=== PATIENT | male | born 1950 | race Caucasian/White ===

== ENCOUNTER 2017-01-22 08:39 | Inpatient (IN) | payer MEDICARE, MEDICAID ==
[2017-01-22] MEDS ORDERED: Albuterol/Ipratropium 3.0-0.5 MG/3 ML Neb Soln NEB ONE (09:22)
--- NOTE | 2017-01-22 10:09 | CR ---
Elevated diaphragms with low lung volumes. Heart size is likely stable. Pulmonary vasculature mildly accentuated due to low lung volumes. No appreciable focal consolidation. Nodular density likely the below the left hemidiaphragm laterally consider a lateral chest x-ray follow-up to exclude a pulmon stephanie nodule.
--- NOTE | 2017-01-22 10:18 | EDM.PDOC ---
[id number]: BREATHING ISSUES Time Seen by Provider: 01/22/17 09:00 Source of Information: Reports: Provider, Other (LANGUAGE TUTOR) - History of Present Illness INITIAL COMMENTS - FREE TEXT/NARRATIVE: 66-year-old male, severely disabled and noncommunicative presented to the clinic for shortness of breath and cough, there was a concern for aspiration. O2 saturations were checked and they were only 86-89% so he was sent over the emergency room. He has mild increased respiratory effort. Intermittent low- grade fevers for the last couple days. His care center manager has noticed him "mouth breathing" which he does not do typically. He also seems anxious. He is unable to communicate and it is unknown if he has pain. He takes feedings by G-tube but also soft foods. He does have a history of aspiration pneumonia. Onset: Unknown/Unsure (Over the past several days) Severity: Moderate Improves with: Reports: Other (There was slight improvement after a duo neb provided in the emergency room) Associated Symptoms: Reports: Fever/Chills, Other (Anxious). Denies: Nausea/ Vomiting - Related Data Allergies Allergy/AdvReac Type Severity Reaction Status Date / Time adhesive tape Allergy Rash Verified 01/22/17 08:56 ampicillin Allergy Cannot Verified 01/22/17 08:56 Remember ketoconazole [From Nizoral] Allergy Cannot Verified 01/22/17 08:56 Remember Home Meds: Home Meds Bisacodyl 10 mg RC Q72H 02/20/14 [History] Diazepam 2 mg PO WITHLUNCH 02/20/14 [History] Diazepam 5 mg PO BID 02/20/14 [History] Magnesium Hydroxide [Milk of Magnesia] 30 ml PO Q72H 02/20/14 [History] Multivitamin [Multi-Vitamin Daily] 1 each PO DAILY 02/20/14 [History] Sorbitol Solution [Sorbitol] 30 ml PO DAILY 02/20/14 [History] Past Medical History - Past Health History Medical/Surgical History: Denies Medical/Surgical History HEENT History: Reports: Cataract Musculoskeletal History: Reports: Other (See Below) Other Musculoskeletal History: kyphosis. 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 non verbal Psychiatric History: Reports: Developmental Delay - Past Surgical History HEENT Surgical History: Reports: Cataract Surgery Other GI Surgeries/Procedures: G-Tube Social & Family History - Tobacco Use Smoking Status *Q: Never Smoker Second Hand Smoke Exposure: No - Caffeine Use Caffeine Use: Reports: None - Alcohol Use Days Per Week of Alcohol Use: 0 - Recreational Drug Use Recreational Drug Use: No ED ROS GENERAL - Review of Systems Review Of Systems: See Below (Very limited review of systems is obtained from his hair spinner) Constitutional: Reports: Fever Respiratory: Reports: Shortness of Breath GI/Abdominal: Denies: Vomiting Psychiatric: Reports: Anxiety (Seems anxious) ED EXAM, GENERAL - Physical Exam Exam: See Below Exam Limited By: Physical Impairment General Appearance: Alert, No Apparent Distress Respiratory/Chest: No Respiratory Distress (He has mild increased respiratory effort but no distress), Decreased Breath Sounds (Right base), Rales (Bibasilar rales are heard), Wheezing (Has a few expiratory wheezes heard after a DuoNeb) Cardiovascular: Regular Rate, Rhythm, Tachycardia GI/Abdominal: Soft Extremities: No: Pedal Edema Neurological: Alert Psychiatric: Anxious Skin Exam: Warm, Dry Course - Vital Signs Last Recorded V/S: Last Vital Signs Temp 98.6 F 01/22/17 13:32 Pulse 105 H 01/22/17 13:32 Resp 20 01/22/17 13:32 BP 147/51 H 01/22/17 13:32 Pulse Ox 94 L 01/22/17 13:32 - Orders/Labs/Meds Orders: Medication Orders Acetaminophen (Tylenol) 650 mg PO Q4H PRN PRN Reason: Pain (Mild 1-3)/fever Albuterol (Proventil Neb Soln) 2.5 mg NEB Q4H PRN PRN Reason: Shortness Of Breath/wheezing Albuterol/Ipratropium (Duoneb 3.0-0.5 Mg/3 Ml) 3 ml NEB QIDRT [facility] Diazepam (Valium) 2 mg PO WITHLUNCH [facility] Last Admin: 01/22/17 13:54 Dose: 2 mg Diazepam (Valium.) 5 mg PO BID [facility] Enoxaparin Sodium (Lovenox) 30 mg SUBCUT DAILY [facility] Ceftriaxone Sodium 1 gm/ (Sodium Chloride) 50 mls @ 100 mls/hr IV Q24H [facility] Last Admin: 01/22/17 11:44 Dose: 100 mls/hr Sodium Chloride (Normal Saline) 1,000 mls @ 75 mls/hr IV ASDIRECTED [facility] Last Admin: 01/22/17 13:54 Dose: 75 mls/hr Methylprednisolone Sodium Succinate (Solu-Medrol) 62.5 mg IVPUSH Q8H [facility] Last Admin: 01/22/17 11:41 Dose: 62.5 mg Multivitamins/Minerals (Thera M Plus) 1 tab PO DAILY [facility] Ondansetron HCl (Zofran Odt) 4 mg PO Q6H PRN PRN Reason: Nausea able to take PO Ondansetron HCl (Zofran) 4 mg IV Q6H PRN PRN Reason: Nausea/Vomiting Sorbitol (Sorbitol 70%) 30 ml PO DAILY [facility] Labs: Laboratory Tests 01/22/17 01/22/17 Range/Units 10:11 10:11 WBC 10.5 (4.5-11.0) K/uL RBC 5.05 (4.30-5.90) M/uL Hgb 15.9 H (12.0-15.0) g/dL Hct 48.2 (40.0-54.0) % MCV 95 (80-98) fL MCH 32 H (27-31) pg MCHC 33 (32-36) % Plt Count 428 H (150-400) K/uL Neut % (Auto) 70 H (36-66) % Lymph % (Auto) 20 L (24-44) % [place] % (Auto) 9 H (2-6) % Eos % (Auto) 1 L (2-4) % Baso % (Auto) 1 (0-1) % Sodium 138 L (140-148) mmol/L Potassium 4.4 (3.6-5.2) mmol/L Chloride 101 (100-108) mmol/L Carbon Dioxide 27 (21-32) mmol/L Anion Gap 14.4 H (5.0-14.0) mmol/L BUN 19 H (7-18) mg/dL Creatinine 0.6 L (0.8-1.3) mg/dL Est Cr Clr Drug Dosing 91.77 mL/min Estimated GFR (MDRD) > 60 (>60) Glucose 137 H (74-106) mg/dL Calcium 9.1 (8.5-10.1) mg/dL Meds: Medications Generic Name Dose Route Start Last Admin Trade Name Neftali PRN Reason Stop Dose Admin Acetaminophen 650 mg 01/22/17 13:32 Tylenol PO Q4H PRN Pain (Mild 1-3)/fever Albuterol 2.5 mg 01/22/17 13:32 Proventil Neb Soln NEB Q4H PRN Shortness Of Breath/wheezing Albuterol/Ipratropium 3 ml 01/22/17 15:00 Duoneb 3.0-0.5 Mg/3 Ml NEB QIDRT [facility] Diazepam 2 mg 01/22/17 13:32 01/22/17 13:54 Valium PO 2 mg WITHLUNCH [facility] Administration Diazepam 5 mg 01/22/17 21:00 Valium. PO BID [facility] Enoxaparin Sodium 30 mg 01/23/17 09:00 Lovenox SUBCUT DAILY [facility] Ceftriaxone Sodium 1 gm/ 50 mls @ 100 mls/hr 01/22/17 12:00 01/22/17 11:44 Sodium Chloride IV 100 mls/hr Q24H [facility] Administration Sodium Chloride 1,000 mls @ 75 mls/hr 01/22/17 13:32 01/22/17 13:54 Normal Saline IV 75 mls/hr ASDIRECTED [facility] Administration Methylprednisolone Sodium Succinate 62.5 mg 01/22/17 12:00 01/22/17 11:41 Solu-Medrol IVPUSH 62.5 mg Q8H [facility] Administration Multivitamins/Minerals 1 tab 01/23/17 09:00 Thera M Plus PO DAILY [facility] Ondansetron HCl 4 mg 01/22/17 13:32 Zofran Odt PO Q6H PRN Nausea able to take PO Ondansetron HCl 4 mg 01/22/17 13:32 Zofran IV Q6H PRN Nausea/Vomiting Sorbitol 30 ml 01/23/17 09:00 Sorbitol 70% PO DAILY [facility] Discontinued Medications Generic Name Dose Route Start Last Admin Trade Name Neftali PRN Reason Stop Dose Admin Albuterol/Ipratropium 3 ml 01/22/17 09:22 01/22/17 09:33 Duoneb 3.0-0.5 Mg/3 Ml NEB 01/22/17 09:23 3 ml ONETIME ONE Administration - Re-Assessments/Exams Free Text/Narrative Re-Assessment/Exam: 01/22/17 10:17 Initially a DuoNeb was given which did expose a few scattered expiratory wheezes and he seemed to be subjectively improved. However O2 saturations did not improve and remained in the high 80s and occasionally 91%. A chest x-ray shows no definite infiltrate but he has a very high bilateral diaphragms which could easily hide posterior infiltrates. A CBC and BMP were then obtained. The hair spinner was very concerned [facility] as [facility] is no [facility] available and she is concerned about him worsening. 01/22/17 10:56 CBC and BMP were reassuring. He continued to remain relatively hypoxic however so O2 was placed at [address] Andrade, of the hospitalist service was consulted to evaluate the patient for possible admission Departure - Departure Time of Disposition: 12:13 Disposition: Admitted As Inpatient 68 Condition: fair Clinical Impression: Bronchitis, Hypoxia Reactive airway disease Qualifiers: Asthma severity: mild intermittent Asthma complication type: with acute exacerbation Qualified Code(s): J45.21 - Mild intermittent asthma with (acute) exacerbation - Discharge Information
--- NOTE | 2017-01-22 11:30 | PCM.HP ---
H&P History of Present Illness - General Date of Service: 01/22/17 Admit Problem/Dx: Admission Diagnosis/Problem Admission Diagnosis/Problem Aspiration pneumonia Source of Information: Other (senior care care provider). No: Patient History Limitations: Reports: Other (pt is non verbal ) - History of Present Illness Initial Comments - Free Text/Narative: Aashish presents to the emergency room today from his [facility] with low oxygen saturations. Aashish is unable to provide any history at this time and history is gathered from his healthcare specialist at the [facility]. She reports that his oxygen saturations have been below 90% for much of the morning. She thinks that he is a little more agitated and restless than normal today. She's not aware of any obvious aspiration events or significant coughing. She hasn't noticed any fevers. He has not shown any activity or concerns her for increased pain or discomfort. His bowels have been moving on their normal schedule. He receives his pills with applesauce or pudding but has not had noticeable choking episodes. He receives most of his nutrition through the feeding tube. Workup in the emergency room remarkable mostly for mild hypoxia with oxygen saturations in the upper 80s. Chest x-ray is difficult to interpret but appears similar to previous with no obvious pneumonia. He will be admitted with concern for aspiration pneumonia. - Related Data Allergies/Adverse Reactions: Allergies Allergy/AdvReac Type Severity Reaction Status Date / Time adhesive tape Allergy Rash Verified 01/22/17 08:56 ampicillin Allergy Cannot Verified 01/22/17 08:56 Remember ketoconazole [From Nizoral] Allergy Cannot Verified 01/22/17 08:56 Remember Home Medications: Home Meds Bisacodyl 10 mg RC Q72H 02/20/14 [History] Diazepam 2 mg PO WITHLUNCH 02/20/14 [History] Diazepam 5 mg PO BID 02/20/14 [History] Magnesium Hydroxide [Milk of Magnesia] 30 ml PO Q72H 02/20/14 [History] Multivitamin [Multi-Vitamin Daily] 1 each PO DAILY 02/20/14 [History] Sorbitol Solution [Sorbitol] 30 ml PO DAILY 02/20/14 [History] Past Medical History - Past Health History Medical/Surgical History: Denies Medical/Surgical History HEENT History: Reports: Cataract Musculoskeletal History: Reports: Other (See Below) Other Musculoskeletal History: kyphosis. 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 non verbal Psychiatric History: Reports: Developmental Delay - Past Surgical History HEENT Surgical History: Reports: Cataract Surgery Other GI Surgeries/Procedures: G-Tube Social & Family History - Family History Family Medical History: Unobtainable (pt is non-verbal) - Tobacco Use Smoking Status *Q: Never Smoker Second Hand Smoke Exposure: No - Caffeine Use Caffeine Use: Reports: None - Alcohol Use Days Per Week of Alcohol Use: 0 - Recreational Drug Use Recreational Drug Use: No H&P Review of Systems - Review of Systems: Review Of Systems: Unable To Obtain Free Text/Narrative: pt is non-verbal Exam - Exam Exam: See Below - Vital Signs Vital Signs: Last Vital Signs Temp 37.3 C 01/22/17 09:35 Pulse 120 H 01/22/17 10:24 Resp 22 H 01/22/17 09:35 BP 157/97 H 01/22/17 10:24 Pulse Ox 87 L 01/22/17 10:50 Weight: 52.163 kg - Exam Quality Assessment: Supplemental Oxygen. No: Urinary Catheter General: Alert, Mild Distress. No: Oriented HEENT: Conjunctiva Clear. No: Mucosa Moist & [place] (dry), Scleral Icterus Neck: Supple, Trachea Midline. No: Lymphadenopathy Lungs: Rales (few at both bases), Wheezing (rare and mild exp left lung base) Cardiovascular: Regular Rate, Regular Rhythm. No: Systolic Murmur Abdomen: Normal Bowel Sounds, Soft. No: Distention, Tenderness Back Exam: Decreased Range of Motion. No: Paraspinal Tenderness Extremities: Edema (mild right ankle edema ), Other (contractures of all joints) . No: Normal Inspection Skin: Warm, Dry Neuro Extensive - Mental Status: Alert. No: Oriented x3, Normal Cognition Neuro Extensive - Motor, Sensory, Reflexes: Abnormal Motor, Other (spastic paraparesis). No: Tremor Psychiatric: Alert, Anxious - Patient Data Lab Results last 24 hrs: Laboratory Results - last 24 hr 01/22/17 01/22/17 Range/Units 10:11 10:11 WBC 10.5 (4.5-11.0) K/uL RBC 5.05 (4.30-5.90) M/uL Hgb 15.9 H (12.0-15.0) g/dL Hct 48.2 (40.0-54.0) % MCV 95 (80-98) fL MCH 32 H (27-31) pg MCHC 33 (32-36) % Plt Count 428 H (150-400) K/uL Neut % (Auto) 70 H (36-66) % Lymph % (Auto) 20 L (24-44) % [place] % (Auto) 9 H (2-6) % Eos % (Auto) 1 L (2-4) % Baso % (Auto) 1 (0-1) % Sodium 138 L (140-148) mmol/L Potassium 4.4 (3.6-5.2) mmol/L Chloride 101 (100-108) mmol/L Carbon Dioxide 27 (21-32) mmol/L Anion Gap 14.4 H (5.0-14.0) mmol/L BUN 19 H (7-18) mg/dL Creatinine 0.6 L (0.8-1.3) mg/dL Est Cr Clr Drug Dosing 91.77 mL/min Estimated GFR (MDRD) > 60 (>60) Glucose 137 H (74-106) mg/dL Calcium 9.1 (8.5-10.1) mg/dL Result Diagrams: 01/22/17 10:11 01/22/17 10:11 Imaging Impressions last 24 hrs: CXR - images personally reviewed - shallow inspiration, elevated diaphragms. no obvious infiltrate. colon gas visible. no obvious mass *Q Meaningful Use (ADM) - VTE *Q VTE Criteria *Q: - VTE Risk Assess *Q Each Risk Factor Represents 1 Point: Swollen Legs, Current, Serious Lung Disease Including Pneumonia, Less than 1 Month Total Score 1 Point Risk Factors: 2 Each Risk Factor Represents 2 Points: Age 60 - 74 Years Total Score 2 Point Risk Factors: 2 - Stroke *Q Stroke Criteria *Q: - AMI *Q AMI Criteria *Q: - Problem List (1) Aspiration pneumonia SNOMED Code(s): 528436962 ICD Code: J69.0 - PNEUMONITIS DUE TO INHALATION OF FOOD AND VOMIT Status: Acute Current Visit: Yes Qualifiers: Aspiration pneumonia type: unspecified Laterality: unspecified laterality Lung location: unspecified part of lung Qualified Code(s): J69.0 - Pneumonitis due to inhalation of food and vomit (2) Spastic paraparesis SNOMED Code(s): 394349818 ICD Code: [id number] - Status: Acute Current Visit: Yes Problem List Initiated/Reviewed/Updated: Yes Orders Last 24hrs: Active Orders 24 hr Category Date Time Status RT Aerosol Therapy [RC] ASDIRECTED Care 01/22/17 09:22 Active cefTRIAXone [Rocephin] 1 gm Med 01/22/17 12:00 Active Sodium Chloride 0.9% [Normal Saline] 50 ml IV Q24H methylPREDNISolone Sod Succ [Solu-MEDROL] Med 01/22/17 12:00 Active 62.5 mg IVPUSH Q8H Resuscitation Status Routine Resus Stat 01/22/17 11:09 Ordered Medication Orders Ceftriaxone Sodium 1 gm/ (Sodium Chloride) 50 mls @ 100 mls/hr IV Q24H [facility] Methylprednisolone Sodium Succinate (Solu-Medrol) 62.5 mg IVPUSH Q8H [facility] Assessment/Plan Comment:: Assessment and plan - Probable aspiration pneumonia/pneumonitis - history of pneumonias and aspiration as well. Fortunately the respiratory compromise is only mild at this time. He doesn't currently require supplemental oxygen to keep his saturations above 90%. No history of significant lung disease. He is fragile given his spastic paraparesis and significant cognitive impairment. He will be admitted to the hospital for management as discussed below. -Ceftriaxone -Low dose steroids -Supplemental oxygen -Blood cultures if he spikes a fever Spastic paraparesis and cognitive impairment - Stable at this time with no behavior issues. Maintenance issues - - DVT prophylaxis - enoxaparin - GI prophylaxis - not indicated - Nutrition - Ensure 4 times a day per usual schedule - Ricks catheter - not indicated CODE STATUS - full treatment without intubation and without ACLS Admission justification - This patient will be admitted for inpatient services and is medically appropriate meeting medical necessity for inpatient admission as outlined in my documentation. I reasonably expect the patient will require inpatient services that span a period time over 2 midnights. I reasonably expect this patient to be discharged or transferred within 96 hours [facility] Disposition - Anticipate discharge back to the [facility] after the hospital stay Primary care physician - Dr. Phi Andrade M.D.
[2017-01-22] MEDS: methylPREDNISolone Sodium Succinate 125 MG/2 ML SDV IVPUSH SCH ×2 (11:41→20:31)
[2017-01-22] MEDS: cefTRIAXone 1 GM in Sodium Chloride 0.9% 50 ML IV SCH (11:44)
[2017-01-22] MEDS ORDERED: Acetaminophen 325 MG Tab PO PRN (13:32)
[2017-01-22] MEDS ORDERED: Albuterol 0.083% 2.5 MG/3 ML Neb Soln NEB PRN (13:32)
[2017-01-22] MEDS ORDERED: Ondansetron 4 MG Tab.DIS PO PRN (13:32)
[2017-01-22] MEDS ORDERED: Ondansetron 4 MG/2 ML SDV IV PRN (13:32)
[2017-01-22] MEDS: Sodium Chloride 0.9% 1,000 ML IV SCH (13:54)
[2017-01-22] MEDS: Diazepam 2 MG Tab PO SCH (13:54)
[2017-01-22] MEDS: Albuterol/Ipratropium 3.0-0.5 MG/3 ML Neb Soln NEB SCH ×2 (14:32→20:34)
[2017-01-22] MEDS: Diazepam 5 MG Tab PO SCH (20:34)
[2017-01-23] MEDS: Sodium Chloride 0.9% 1,000 ML IV SCH (02:19)
[2017-01-23] MEDS: methylPREDNISolone Sodium Succinate 125 MG/2 ML SDV IVPUSH SCH (04:40)
[2017-01-23 07:18] VITALS: BP 167/90
[2017-01-23] MEDS: Albuterol/Ipratropium 3.0-0.5 MG/3 ML Neb Soln NEB SCH ×2 (07:25→10:55)
[2017-01-23] MEDS: Diazepam 5 MG Tab PO SCH (08:48)
[2017-01-23] MEDS ORDERED: SORBITOL 70% PO SCH (09:00)
[2017-01-23] MEDS ORDERED: Enoxaparin 30 MG/0.3 ML Syringe SUBCUT SCH (09:00)
[2017-01-23] MEDS ORDERED: Multivitamins with Iron/Calcium/Folic Acid/Minerals Tab PO SCH (09:00)
[2017-01-23] MEDS ORDERED: Non-Formulary Medication 1 Each (Multivitamin [Multi-Vitamin Daily] 1 EACH) PO SCH (09:00)
--- NOTE | 2017-01-23 11:01 | PCM.DCSUM1 ---
Discharge Summary - Hospital Course Brief History: Aashish presented to the emergency room with low oxygen numbers and was admitted for management of presumed aspiration pneumonitis with hypoxia - Discharge Data Discharge Date: 01/23/17 Discharge Disposition: Home, Self-Care 01 Condition: Fair - Discharge Diagnosis/Problem(s) (1) Aspiration pneumonia SNOMED Code(s): 811825553 ICD Code: J69.0 - PNEUMONITIS DUE TO INHALATION OF FOOD AND VOMIT Status: Acute Current Visit: Yes Qualifiers: Aspiration pneumonia type: unspecified Laterality: unspecified laterality Lung location: unspecified part of lung Qualified Code(s): J69.0 - Pneumonitis due to inhalation of food and vomit (2) Spastic paraparesis SNOMED Code(s): 963796067 ICD Code: [id number] - Status: Acute Current Visit: Yes - Patient Summary/Data Hospital Course: Aashish presented to the emergency room with low oxygen saturations at his long-term. Workup in the emergency room revealed hypoxia and probable aspiration pneumonia. He was admitted to the hospital for management. He was started on ceftriaxone and steroids in addition to supplemental oxygen. Shortly after arrival to the floor his oxygen saturations normalized and have been stable to improving since that time. There were no acute events overnight following admission. The morning after admission his oxygen saturations are in the mid 90s on room air. There is no evidence for respiratory distress. Laboratory studies are all normal. Vital signs are otherwise stable. He has improved much quicker than I expected and I believe is safe for her hospital discharge at this time with more than 24 hours were he did not require supplemental oxygen and has been clinically stable. I'm going to continue steroids for 3 additional days and antibiotics for 3 additional days for a total of 5 days of therapy. He'll be discharged back to his long-term with his usual cares. Followup can be as needed if he does not continue to improve. - Patient Instructions Diet: Usual Diet as Tolerated Activity: As Tolerated Notify Provider of: Fever, Increased Pain, Nausea and/or Vomiting Other/Special Instructions: 1. You were in the hospital for management of aspiration pneumonitis/pneumonia. You have recovered very quickly from this and no longer require oxygen. I do recommend 3 additional days of antibiotic therapy and steroid therapy. - cefdinir the 100 mg twice daily for 3 days. Your first dose is due tomorrow morning. - Prednisone 20 mg - take one tablet once daily for 3 days. Your first dose is due tomorrow morning. 2. Continue your usual medications as previously prescribed. 3. Please seek medical attention if you develop fever greater than 101, have sudden worsening of your breathing or you develop persistent vomiting or diarrhea. - Discharge Plan Prescriptions/Med Rec: Cefdinir 300 mg PO BID #6 capsule predniSONE [Prednisone] 20 mg PO DAILY #3 tablet Home Medications: Home Meds Bisacodyl 10 mg RC Q72H 02/20/14 [History] Diazepam 2 mg PO WITHLUNCH 02/20/14 [History] Diazepam 5 mg PO BID 02/20/14 [History] Magnesium Hydroxide [Milk of Magnesia] 30 ml PO Q72H 02/20/14 [History] Multivitamin [Multi-Vitamin Daily] 1 each PO DAILY 02/20/14 [History] Sorbitol Solution [Sorbitol] 30 ml PO DAILY 02/20/14 [History] Cefdinir 300 mg PO BID #6 capsule 01/23/17 [Rx] predniSONE [Prednisone] 20 mg PO DAILY #3 tablet 01/23/17 [Rx] Patient Handouts: Pneumonitis Referrals: Link Yip MD [Primary Care Provider] - (followup next week if your symptoms do not continue to get better or they get worse) - Discharge Summary/Plan Comment DC Time >30 min.: No (25) - Patient Data Vitals - Most Recent: Last Vital Signs Temp 36.2 C 01/23/17 02:15 Pulse 86 01/23/17 10:56 Resp 20 01/23/17 07:00 BP 167/90 H 01/23/17 07:00 Pulse Ox 94 L 01/23/17 07:25 Weight - Most Recent: 57.561 kg I&O - Last 24 hours: Intake & Output 01/22/17 01/23/17 01/23/17 22:59 06:59 14:59 Intake Total 1064 Balance 1064 Lab Results - Last 24 hrs: Laboratory Results - last 24 hr 01/23/17 01/23/17 Range/Units 05:05 05:05 WBC 5.9 (4.5-11.0) K/uL RBC 4.57 (4.30-5.90) M/uL Hgb 14.3 (12.0-15.0) g/dL Hct 43.7 (40.0-54.0) % MCV 96 (80-98) fL MCH 31 (27-31) pg MCHC 33 (32-36) % Plt Count 357 (150-400) K/uL Sodium 140 (140-148) mmol/L Potassium 3.9 (3.6-5.2) mmol/L Chloride 104 (100-108) mmol/L Carbon Dioxide 28 (21-32) mmol/L Anion Gap 7.8 (5.0-14.0) mmol/L BUN 24 H (7-18) mg/dL Creatinine 0.6 L (0.8-1.3) mg/dL Est Cr Clr Drug Dosing 91.77 mL/min Estimated GFR (MDRD) > 60 (>60) Glucose 140 H (74-106) mg/dL Calcium 8.6 (8.5-10.1) mg/dL Med Orders - Current: Current Medications Acetaminophen (Tylenol) 650 mg PO Q4H PRN PRN Reason: Pain (Mild 1-3)/fever Albuterol (Proventil Neb Soln) 2.5 mg NEB Q4H PRN PRN Reason: Shortness Of Breath/wheezing Albuterol/Ipratropium (Duoneb 3.0-0.5 Mg/3 Ml) 3 ml NEB QIDRT [facility] Last Admin: 01/23/17 10:55 Dose: 3 ml Diazepam (Valium) 2 mg PO WITHLUNCH [facility] Last Admin: 01/22/17 13:54 Dose: 2 mg Diazepam (Valium.) 5 mg PO BID [facility] Last Admin: 01/23/17 08:48 Dose: 5 mg Enoxaparin Sodium (Lovenox) 30 mg SUBCUT DAILY [facility] Last Admin: 01/23/17 08:41 Dose: 30 mg Ceftriaxone Sodium 1 gm/ (Sodium Chloride) 50 mls @ 100 mls/hr IV Q24H [facility] Last Admin: 01/22/17 11:44 Dose: 100 mls/hr Sodium Chloride (Normal Saline) 1,000 mls @ 75 mls/hr IV ASDIRECTED [facility] Last Admin: 01/23/17 02:19 Dose: 75 mls/hr Methylprednisolone Sodium Succinate (Solu-Medrol) 62.5 mg IVPUSH Q8H [facility] Last Admin: 01/23/17 04:40 Dose: 62.5 mg Multivitamins/Minerals (Thera M Plus) 1 tab PO DAILY [facility] Last Admin: 01/23/17 08:42 Dose: Not Given Ondansetron HCl (Zofran Odt) 4 mg PO Q6H PRN PRN Reason: Nausea able to take PO Ondansetron HCl (Zofran) 4 mg IV Q6H PRN PRN Reason: Nausea/Vomiting Sorbitol (Sorbitol 70%) 30 ml PO DAILY [facility] Last Admin: 01/23/17 08:41 Dose: 30 ml Discontinued Medications Albuterol/Ipratropium (Duoneb 3.0-0.5 Mg/3 Ml) 3 ml NEB ONETIME ONE Stop: 01/22/17 09:23 Last Admin: 01/22/17 09:33 Dose: 3 ml *Q Meaningful Use (DIS) - VTE *Q VTE Criteria *Q: - Stroke *Q Stroke Criteria *Q: - AMI *Q AMI Criteria *Q:
[2017-01-23] MEDS: cefTRIAXone 1 GM in Sodium Chloride 0.9% 50 ML IV SCH (12:07)
[2017-01-23] MEDS ORDERED: predniSONE 20 MG Tab PO ONE (12:30)
[2017-01-23] MEDS: Diazepam 2 MG Tab PO SCH (12:31)
== END 2017-01-23 14:45 | disposition home or self-care (01) | DRG 178 ==
LOC: JP.ED 08:39 → JP.MS 11:07
PROVIDERS: ADMIT Internal Medicine; ATTEND Internal Medicine
DX: J69.0 Pneumonitis due to inhalation of food and vomit (principal); G82.20 Paraplegia, unspecified; R09.02 Hypoxemia; F79 Unspecified intellectual disabilities; Z66 Do not resuscitate; Z93.1 Gastrostomy status; Z87.01 Personal history of pneumonia (recurrent); Z88.1 Allergy status to other antibiotic agents; Z88.8 Allergy status to other drugs, medicaments and biological substances; R06.02 Shortness of breath; Z91.048 Other nonmedicinal substance allergy status
CPT/HCPCS: 36415; 71010 ×2; 80048; 85025; 94640; J7620; 85027; 96365; 96375; 99284; 99285-25; A9270-GY; J0696; J1650; J2930; J7040; J7050

== ENCOUNTER 2017-02-26 15:21 | Inpatient (IN) | payer MEDICARE, MEDICAID ==
--- NOTE | 2017-02-26 16:56 | EDM.PDOC ---
ED HPI GENERAL MEDICAL PROBLEM - General Chief Complaint: Respiratory Problem Stated Complaint: SHORTNESS OF BREATH,SENT FROM CLINIC Time Seen by Provider: 02/26/17 16:55 Source of Information: Reports: Patient History Limitations: Reports: No Limitations - History of Present Illness INITIAL COMMENTS - FREE TEXT/NARRATIVE: pt has been ill since the beginning of January, He has had a course of levoquin and predisone which has not hellped alot. He has been having low o2 sats. He has nort had a bm for several days. Onset: Gradual Duration: Day(s): Location: Reports: Chest, Abdomen Associated Symptoms: Reports: Cough, Shortness of Breath - Related Data Allergies Allergy/AdvReac Type Severity Reaction Status Date / Time adhesive tape Allergy Rash Verified 01/22/17 08:56 ampicillin Allergy Cannot Verified 01/22/17 08:56 Remember ketoconazole [From Nizoral] Allergy Cannot Verified 01/22/17 08:56 Remember Home Meds: Home Meds Bisacodyl 10 mg RC Q72H 02/20/14 [History] Diazepam 2 mg PO WITHLUNCH 02/20/14 [History] Diazepam 5 mg PO BID 02/20/14 [History] Magnesium Hydroxide [Milk of Magnesia] 30 ml PO Q72H 02/20/14 [History] Multivitamin [Multi-Vitamin Daily] 1 each PO DAILY 02/20/14 [History] Sorbitol Solution [Sorbitol] 30 ml PO DAILY 02/20/14 [History] Polyethylene Glycol 3350 [MiraLAX] 8.5 gm PO DAILY 02/26/17 [History] Past Medical History - Past Health History Medical/Surgical History: Denies Medical/Surgical History HEENT History: Reports: Cataract Genitourinary History: Reports: Urinary Incontinence Musculoskeletal History: Reports: Other (See Below) Other Musculoskeletal History: kyphosis. 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 non verbal Psychiatric History: Reports: Developmental Delay - Past Surgical History HEENT Surgical History: Reports: Cataract Surgery Other GI Surgeries/Procedures: G-Tube Social & Family History - Family History Family Medical History: Unobtainable - Tobacco Use Smoking Status *Q: Never Smoker Second Hand Smoke Exposure: No - Caffeine Use Caffeine Use: Reports: None - Alcohol Use Days Per Week of Alcohol Use: 0 - Recreational Drug Use Recreational Drug Use: No ED ROS GENERAL - Review of Systems Review Of Systems: See Below Constitutional: Reports: Malaise, Other (chest congestion) HEENT: Reports: No Symptoms Respiratory: Reports: Shortness of Breath, Other (labred breathing according to the staff. ) Cardiovascular: Reports: No Symptoms Endocrine: Reports: No Symptoms GI/Abdominal: Reports: Constipation, Other ( Pt has not had a bm for several days. ) : Reports: No Symptoms Musculoskeletal: Reports: No Symptoms Skin: Reports: No Symptoms Neurological: Reports: Other (no change. ) ED EXAM, GENERAL - Physical Exam Exam: See Below Free Text/Narrative:: pt has been having rapid resp. He has not had a stool for several days. Exam Limited By: No Limitations General Appearance: Alert, Anxious, Mild Distress, Other (pt has good o2 sats and does not look real labored at this time. ) Ears: Normal TMs Nose: Normal Inspection Throat/Mouth: Normal Inspection Head: Atraumatic Neck: Normal Inspection Respiratory/Chest: Other ( rhonchi in the upper lung falk. Pt does not seem real labored at this time. ) Cardiovascular: Regular Rate, Rhythm, Tachycardia GI/Abdominal: Distended, Tender (Male) Exam: Deferred Rectal (Males) Exam: Fecal Impaction Back Exam: Other ( unchanged. ) Neurological: Alert, Other (pt is normally quite impaired. ) Course - Vital Signs Last Recorded V/S: Last Vital Signs Temp 36.8 C 02/26/17 16:41 Pulse 105 H 02/26/17 17:49 Resp 18 02/26/17 16:41 BP 154/101 H 02/26/17 17:49 Pulse Ox 92 L 02/26/17 17:49 - Orders/Labs/Meds Orders: Active Orders 24 hr Category Date Time Status Enema [RC] ASDIRECTED Care 02/26/17 17:10 Active RT Aerosol Therapy [RC] ASDIRECTED Care 02/26/17 17:57 Active Abdomen 1V Flat [CR] Stat Exams 02/26/17 18:14 Ordered Chest 1V Frontal [CR] Stat Exams 02/26/17 16:50 Taken UA W/MICROSCOPIC [URIN] Urgent Lab 02/26/17 16:50 Uncollected Sodium Chloride 0.9% [Normal Saline] 1,000 ml Med 02/26/17 17:00 Active IV ASDIRECTED Medication Orders Sodium Chloride (Normal Saline) 1,000 mls @ 400 mls/hr IV ASDIRECTED EDER Last Admin: 02/26/17 17:39 Dose: 400 mls/hr Labs: Laboratory Tests 02/26/17 02/26/17 02/26/17 Range/Units 17:15 17:15 17:15 WBC 13.1 H (4.5-11.0) K/uL RBC 4.87 (4.30-5.90) M/uL Hgb 15.1 H (12.0-15.0) g/dL Hct 46.0 (40.0-54.0) % MCV 95 (80-98) fL MCH 31 (27-31) pg MCHC 33 (32-36) % Plt Count 388 (150-400) K/uL Neut % (Auto) 85 H (36-66) % Lymph % (Auto) 8 L (24-44) % [place] % (Auto) 7 H (2-6) % Eos % (Auto) 0 L (2-4) % Baso % (Auto) 0 (0-1) % Puncture Site ABG pH (7.350-7.450) ABG pCO2 (35.0-42.0) mmHg ABG pO2 (75.0-100.0) mmHg ABG HCO3 (22.0-26.0) mmol/L ABG Total CO2 (23.0-27.0) mmol/L ABG O2 Saturation (95.0-98.0) % ABG O2 Content (15.0-23.0) %vol ABG Base Excess mm/L ABG Hemoglobin (13.5-18.0) g/dL ABG Oxyhemoglobin % ABG Carboxyhemoglobin (0.0-1.6) % ABG Methemoglobin % Crow Test O2 Delivery Device Sodium 137 L (140-148) mmol/L Potassium 3.8 (3.6-5.2) mmol/L Chloride 100 (100-108) mmol/L Carbon Dioxide 31 (21-32) mmol/L Anion Gap 9.8 (5.0-14.0) mmol/L BUN 19 H (7-18) mg/dL Creatinine 0.6 L (0.8-1.3) mg/dL Est Cr Clr Drug Dosing 91.77 mL/min Estimated GFR (MDRD) > 60 (>60) Glucose 123 H (74-106) mg/dL Calcium 9.6 (8.5-10.1) mg/dL Total Bilirubin 0.3 (0.2-1.0) mg/dL AST 16 (15-37) U/L ALT 17 (12-78) U/L Alkaline Phosphatase 139 H (46-116) U/L C-Reactive Protein 0.26 (0.0-0.3) mg/dL Total Protein 7.1 (6.4-8.2) g/dL Albumin 3.3 L (3.4-5.0) g/dL Globulin 3.8 H (2.3-3.5) g/dL Albumin/Globulin Ratio 0.9 L (1.2-2.2) 02/26/17 Range/Units 18:05 WBC (4.5-11.0) K/uL RBC (4.30-5.90) M/uL Hgb (12.0-15.0) g/dL Hct (40.0-54.0) % MCV (80-98) fL MCH (27-31) pg MCHC (32-36) % Plt Count (150-400) K/uL Neut % (Auto) (36-66) % Lymph % (Auto) (24-44) % [place] % (Auto) (2-6) % Eos % (Auto) (2-4) % Baso % (Auto) (0-1) % Puncture Site Lt radial ABG pH 7.483 H (7.350-7.450) ABG pCO2 40.4 (35.0-42.0) mmHg ABG pO2 59.4 L (75.0-100.0) mmHg ABG HCO3 30.0 H (22.0-26.0) mmol/L ABG Total CO2 25.7 (23.0-27.0) mmol/L ABG O2 Saturation 92.2 L (95.0-98.0) % ABG O2 Content 18.7 (15.0-23.0) %vol ABG Base Excess 6.3 mm/L ABG Hemoglobin 14.6 (13.5-18.0) g/dL ABG Oxyhemoglobin 91.0 % ABG Carboxyhemoglobin 0.8 (0.0-1.6) % ABG Methemoglobin 0.5 % Crow Test Pass O2 Delivery Device Room air Sodium (140-148) mmol/L Potassium (3.6-5.2) mmol/L Chloride (100-108) mmol/L Carbon Dioxide (21-32) mmol/L Anion Gap (5.0-14.0) mmol/L BUN (7-18) mg/dL Creatinine (0.8-1.3) mg/dL Est Cr Clr Drug Dosing mL/min Estimated GFR (MDRD) (>60) Glucose (74-106) mg/dL Calcium (8.5-10.1) mg/dL Total Bilirubin (0.2-1.0) mg/dL AST (15-37) U/L ALT (12-78) U/L Alkaline Phosphatase (46-116) U/L C-Reactive Protein (0.0-0.3) mg/dL Total Protein (6.4-8.2) g/dL Albumin (3.4-5.0) g/dL Globulin (2.3-3.5) g/dL Albumin/Globulin Ratio (1.2-2.2) Meds: Medications Generic Name Dose Route Start Last Admin Trade Name Freq PRN Reason Stop Dose Admin Sodium Chloride 1,000 mls @ 400 mls/hr 02/26/17 17:00 02/26/17 17:39 Normal Saline IV 400 mls/hr ASDIRECTED EDER Administration Discontinued Medications Generic Name Dose Route Start Last Admin Trade Name Freq PRN Reason Stop Dose Admin Albuterol 2.5 mg 02/26/17 17:57 02/26/17 18:12 Proventil Neb Soln NEB 02/26/17 17:58 2.5 mg ONETIME ONE Administration Bisacodyl 10 mg 02/26/17 17:09 02/26/17 17:40 Dulcolax RECTAL 02/26/17 17:10 10 mg ONETIME ONE Administration - Re-Assessments/Exams Free Text/Narrative Re-Assessment/Exam: 02/26/17 18:29 pt has a wbc of 13,00, His other labs don,t look bad. his chest xray does not show a infiltrate. Departure - Departure Time of Disposition: 18:30 Disposition: Admitted As Inpatient 68 Condition: Fair Clinical Impression: Constipation by delayed colonic transit, History of pneumonia - Discharge Information Forms: ED Department Discharge - My Orders Last 24 Hours: My Active Orders 02/26/17 16:50 Chest 1V Frontal [CR] Stat UA W/MICROSCOPIC [URIN] Urgent 02/26/17 17:00 Sodium Chloride 0.9% [Normal Saline] 1,000 ml IV ASDIRECTED 02/26/17 17:10 Enema [RC] ASDIRECTED 02/26/17 17:57 RT Aerosol Therapy [RC] ASDIRECTED 02/26/17 18:14 Abdomen 1V Flat [CR] Stat - Assessment/Plan Last 24 Hours: My Active Orders 02/26/17 16:50 Chest 1V Frontal [CR] Stat UA W/MICROSCOPIC [URIN] Urgent 02/26/17 17:00 Sodium Chloride 0.9% [Normal Saline] 1,000 ml IV ASDIRECTED 02/26/17 17:10 Enema [RC] ASDIRECTED 02/26/17 17:57 RT Aerosol Therapy [RC] ASDIRECTED 02/26/17 18:14 Abdomen 1V Flat [CR] Stat
[2017-02-26] MEDS ORDERED: Sodium Chloride 0.9% 1,000 ML IV SCH (17:00)
[2017-02-26] MEDS ORDERED: Bisacodyl 10 MG Supp RECTAL ONE (17:09)
[2017-02-26] MEDS ORDERED: Albuterol 0.083% 2.5 MG/3 ML Neb Soln NEB ONE (17:57)
[2017-02-26] MEDS ORDERED: Polyethylene Glycol 3350 Powder 17 GM Packet JTUBE ONE (20:33)
[2017-02-26] MEDS ORDERED: LORazepam 2 MG/ML MDV IV PRN (20:33)
[2017-02-26] MEDS ORDERED: Sodium Phosphate,Monobasic/Sodium Phosphate,Dibasic Enema 133 ML Bottle RECTAL ONE (20:33)
[2017-02-26] MEDS ORDERED: Acetaminophen/HYDROcodone 108-2.5 MG/5 ML Soln 15 ML UD Cup JTUBE PRN (20:33)
[2017-02-26] MEDS ORDERED: Acetaminophen Soln 160 MG/5 ML UD Cup JTUBE PRN (20:33)
[2017-02-26] MEDS ORDERED: Magnesium Citrate Solution 296 ML Bottle JTUBE ONE ×2 (21:00→23:00)
[2017-02-26] MEDS: Diazepam ORAL 5 MG/ML U/D Container JTUBE SCH (22:14)
[2017-02-26] MEDS: Lactated Ringers 1,000 ML IV SCH (22:40)
--- NOTE | 2017-02-26 23:18 | PCM.HP ---
H&P History of Present Illness - General Date of Service: 02/26/17 Admit Problem/Dx: Admission Diagnosis/Problem Admission Diagnosis/Problem Constipation Source of Information: Care Home Records, Other (Nursing Staff) - History of Present Illness Initial Comments - Free Text/Narative: Illness; this is a 66 year profoundly disabled man from [facility] arrives in ER via EMS. Mr. Cuevas has a staff member with him to give reports of today's events. She reports, Jose Luis has been ill since the beginning of January, He has had a course of Levaquin and predisone which has not helped a lot. He has been having low o2 sats. He has not had a bm for several days. Staff work reports he has a feeding tube, but he still takes some of his medication by mouth and is eating one meal in additional to tube feedings, they have concerns of aspiration. He coughs a lot with eating. Onset: Gradual onset labs: has a wbc of 13,000, His other labs no acute finding. his chest xray does not show a infiltrate. abdomen xray; full of stool Departure; admit for fecal impaction and constipation. monitoring of low oxygen sats. l Onset of Symptoms: Reports: Gradual Symptom Onset Date: 01/31/17 Duration of Symptoms: Reports: Day(s): Location: Reports: Generalized Quality: Reports: Same as Previous Episode Severity: Moderate Improves with: Reports: None Worsens with: Reports: None Associated Symptoms: Reports: No Other Symptoms - Related Data Allergies/Adverse Reactions: Allergies Allergy/AdvReac Type Severity Reaction Status Date / Time adhesive tape Allergy Rash Verified 01/22/17 08:56 ampicillin Allergy Cannot Verified 01/22/17 08:56 Remember ketoconazole [From Nizoral] Allergy Cannot Verified 01/22/17 08:56 Remember Home Medications: Home Meds Bisacodyl 10 mg RC Q72H 02/20/14 [History] Diazepam 2 mg PO WITHLUNCH 02/20/14 [History] Diazepam 5 mg PO BID 02/20/14 [History] Magnesium Hydroxide [Milk of Magnesia] 30 ml PO Q72H 02/20/14 [History] Multivitamin [Multi-Vitamin Daily] 1 each PO DAILY 02/20/14 [History] Sorbitol Solution [Sorbitol] 30 ml PO DAILY 02/20/14 [History] Polyethylene Glycol 3350 [MiraLAX] 8.5 gm PO DAILY 02/26/17 [History] Past Medical History - Past Health History Medical/Surgical History: Denies Medical/Surgical History HEENT History: Reports: Cataract Genitourinary History: Reports: Urinary Incontinence Musculoskeletal History: Reports: Other (See Below) Other Musculoskeletal History: kyphosis. 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 non verbal Psychiatric History: Reports: Developmental Delay - Past Surgical History HEENT Surgical History: Reports: Cataract Surgery Other GI Surgeries/Procedures: G-Tube Social & Family History - Family History Family Medical History: Unobtainable - Tobacco Use Smoking Status *Q: Never Smoker Second Hand Smoke Exposure: No - Caffeine Use Caffeine Use: Reports: None - Alcohol Use Days Per Week of Alcohol Use: 0 - Recreational Drug Use Recreational Drug Use: No - Living Situation & Occupation Living situation: Reports: Assisted Living Occupation: Disabled (has lived many years at the [facility] , He has Sisters who live out of state, both his Parents are . He has [facility] as guardians.) H&P Review of Systems - Review of Systems: Review Of Systems: Unable To Obtain (due to global delays) General: Reports: ROS unobtainable, Other (non verbal, with global developmental disabilities.) HEENT: Reports: Glasses Pulmonary: Reports: Cough, Other (Staff reports coughing, recent pneumomia.) Gastrointestinal: Reports: Constipation Genitourinary: Reports: Incontinence Musculoskeletal: Reports: Other (contractures of hands, feet, positioning. ) Skin: Reports: Other (no decub noted) Psychiatric: Reports: Other (pre-exisiting) Neurological: Reports: Pre-Existing Deficit, Other (non verbal) Hematologic/Lymphatic: Reports: No Symptoms Immunologic: Reports: No Symptoms Exam - Exam Exam: See Below - Vital Signs Vital Signs: Last Vital Signs Temp 36.5 C 02/26/17 22:08 Pulse 100 02/26/17 22:08 Resp 12 02/26/17 22:08 BP 169/74 H 02/26/17 22:08 Pulse Ox 95 02/26/17 22:08 Weight: 52.163 kg - Exam General: Alert (awake, turning his head to look around.) HEENT: Pupils Equal, Pupils Reactive, TMs Clear, Glasses Neck: Supple Lungs: Clear to Auscultation, Normal Respiratory Effort, Decreased Breath Sounds Cardiovascular: Regular Rate, Regular Rhythm Abdomen: Distention, Hypoactive Bowel Sounds (Male) Exam: Deferred Rectal (Males) Exam: Deferred Back Exam: Other (scoliosis) Extremities: Other (contractures of arm, hands, wrist, ankle) Peripheral Pulses: 2+: Dorsalis Pedis (L), Dorsalis Pedis (R) Skin: Warm, Dry, Intact Neuro Extensive - Motor, Sensory, Reflexes: Motor/Sensory Deficits Psychiatric: Other (non verbal, turning head from side to side, does not appear to be in distress. ) - Patient Data Result Diagrams: 02/26/17 17:15 02/26/17 17:15 *Q Meaningful Use (ADM) - VTE *Q VTE Criteria *Q: - Stroke *Q Stroke Criteria *Q: - AMI *Q AMI Criteria *Q: - Problem List (1) Small bowel tube feeding SNOMED Code(s): 445625101, 206931840 ICD Code: Z93.4 - OTHER ARTIFICIAL OPENINGS OF GASTROINTESTINAL TRACT STATUS Status: Acute Priority: High Current Visit: Yes (2) Spastic paraparesis SNOMED Code(s): 883541020 ICD Code: [id number] - Status: Acute Priority: High Current Visit: Yes (3) Constipation, acute SNOMED Code(s): 669600148 ICD Code: K59.00 - CONSTIPATION, UNSPECIFIED Status: Acute Priority: High Current Visit: Yes (4) Global developmental delay, osteopenia, and ectodermal defect syndrome SNOMED Code(s): 998888255 ICD Code: Q87.89 - OTH CONGENITAL MALFORMATION SYNDROMES, NEC; F88 - OTHER DISORDERS OF PSYCHOLOGICAL DEVELOPMENT; M85.80 - OT DISRD OF BONE DENSITY AND STRUCTURE, UNSPECIFIED SITE Status: Acute Priority: High Current Visit: Yes Problem List Initiated/Reviewed/Updated: Yes Orders Last 24hrs: Active Orders 24 hr Category Date Time Status Patient Status [ADT] Routine ADT 02/26/17 20:33 Active Bathe Patient [RC] ASDIRECTED Care 02/26/17 20:33 Active Bedrest [RC] ASDIRECTED Care 02/26/17 20:33 Active Communication Order [RC] ASDIRECTED Care 02/26/17 20:33 Active Intake and Output [RC] QSHIFT Care 02/26/17 20:33 Active Notify Provider Vital Signs [RC] ASDIRECTED Care 02/26/17 20:33 Active Pulse Oximetry [RC] CONTINUOUS Care 02/26/17 20:33 Active VTE/DVT Education [RC] Per Unit Routine Care 02/26/17 20:33 Active Vital Signs [RC] Q4H Care 02/26/17 20:33 Active Consult to Case Management [CONS] Routine Cons 02/26/17 20:33 Active Consult to Schedule Manager [CONS] Routine Cons 02/26/17 20:33 Active OT Evaluation and Treatment [CONS] Routine Cons 02/26/17 20:33 Active PT Evaluation and Treatment [CONS] Routine Cons 02/26/17 20:33 Active Nothing per Oral Now Diet [DIET] Diet 02/26/17 Dinner Active Acetaminophen [Tylenol Solution] Med 02/26/17 20:33 Pending 640 mg PO Q4H PRN Acetaminophen/HYDROcodone [Acetaminophen/HYDROcodone Med 02/26/17 20:33 Pending 108-2.5 MG/5 ML] 10 ml PO Q4H PRN Diazepam [Valium Intensol ORAL 5mg/mL U/D] Med 02/27/17 12:00 Active 2 mg JTUBE DAILY@1200 Diazepam [Valium Intensol ORAL 5mg/mL U/D] Med 02/26/17 21:00 Active 5 mg JTUBE BID LORazepam [Ativan] Med 02/26/17 20:33 Active 1 mg IV Q6H PRN Lactated Ringers [Ringers, Lactated] 1,000 ml Med 02/26/17 20:33 Active IV ASDIRECTED Magnesium Hydroxide [Milk of Magnesia] Med 02/28/17 09:00 Active 30 ml JTUBE Q72H Pantoprazole [ProTONIX IV] Med 02/27/17 09:00 Active 40 mg IVPUSH DAILY Polyethylene Glycol 3350 [MiraLAX] Med 02/27/17 09:00 Active 17 gm JTUBE DAILY Sorbitol [Sorbitol 70%] Med 02/27/17 09:00 Active 30 ml JTUBE DAILY Resuscitation Status Routine Resus Stat 02/26/17 19:33 Ordered Medication Orders Acetaminophen (Tylenol Solution) 640 mg PO Q4H PRN PRN Reason: Pain/Fever Hydrocodone Bitart/Acetaminophen (Acetaminophen/Hydrocodone 108-2.5 Mg/5 Ml) 10 ml PO Q4H PRN PRN Reason: Pain Diazepam (Valium Intensol Oral 5mg/Ml U/D) 5 mg JTUBE BID EDER Last Admin: 02/26/17 22:14 Dose: 5 mg Diazepam (Valium Intensol Oral 5mg/Ml U/D) 2 mg JTUBE DAILY@1200 EDER Sodium Chloride (Normal Saline) 1,000 mls @ 400 mls/hr IV ASDIRECTED EDER Last Admin: 02/26/17 17:39 Dose: 400 mls/hr Lactated Ringer's (Ringers, Lactated) 1,000 mls @ 125 mls/hr IV ASDIRECTED EDER Lorazepam (Ativan) 1 mg IV Q6H PRN PRN Reason: Nausea/Vomiting Magnesium Hydroxide (Milk Of Magnesia) 30 ml JTUBE Q72H EDER Pantoprazole Sodium (Protonix Iv) 40 mg IVPUSH DAILY EDER Polyethylene Glycol (Miralax) 17 gm JTUBE DAILY EDER Sorbitol (Sorbitol 70%) 30 ml JTUBE DAILY EDER Assessment/Plan Comment:: ASSESSMENT AND PLAN: - Illness; this is a 66 year profoundly disabled from [facility] arrives in ER via EMS. Mr. Cuevas has a staff member with him to give reports of today' s events. She reports, Jose Luis has been ill since the beginning of January, He has had a course of Levaquin and predisone which has not helped a lot. He has been having low o2 sats. He has not had a bm for several days. Onset: Gradual onset labs: has a wbc of 13,000, His other labs not acute. his chest xray does not show a infiltrate. abdomen xray; full of stool Departure; admit for fecal impaction and constipation. Plan Constipation with fecal impaction -Admit to [address] [place] [address] for further monitoring -IV LR at 125ml/hr -medication order; Miralax 17.5 gram via JTube, Magnesium Citrate 146ml now via JTube repeat in 2 hours 146ml via JTube., fleet enema -tube feedings, increased free water from 30 ml to 120ml after each tube feeding. -Dietary consult to evaluation nutritional calorie and free water needs to prevent dehydration and constipation. -And a.m. labs: CBC, BMP Spastic paralysis, CP, 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 -PPI; IV Protonix 40mg daily. -consult OT for discharge planning. -consult PT for strengthening, prevent further contracture. -consult to social science research assistant for discharge planning. CODE STATUS: DNR/DNI Admission status: Admit to [address] [place] [address] Admission justification. This patient will be admitted for inpatient services and is medically appropriate meeting medical necessity for inpatient admission as outlined in my documentation. I reasonably expect the patient will require inpatient services that span. Time over 2 midnights. I reasonably expect this patient to be discharged or transferred within 96 hours after admission to the critical access hospital. Disposition; [facility] Hospitalist: Dr. Zhang
[2017-02-27] MEDS: Albuterol 0.083% 2.5 MG/3 ML Neb Soln NEB PRN ×4 (03:10→20:46)
[2017-02-27] MEDS: Lactated Ringers 1,000 ML IV SCH (04:07)
[2017-02-27] MEDS ORDERED: Lactated Ringers 1,000 ML IV SCH (06:15)
--- NOTE | 2017-02-27 08:22 | PCM.SN ---
- Free Text/Narrative Note: time: 02:20 call from [address] [place] [address], Mr. Cuevas respiration has increased and is wheezing. fever also noted. a; fever, aspiration risk, concerns for fluid overload p; decrease IV fluids to 75ml, -give Albuterol neb ,then one every 4 hours prn, -blood cultures x2, IV rocephin 1 gram now, and every 24hours -am labs cbc , bmp
[2017-02-27] MEDS: Diazepam ORAL 5 MG/ML U/D Container JTUBE SCH ×3 (08:51→20:46)
[2017-02-27] MEDS: Pantoprazole 40 MG Vial IVPUSH SCH (09:00)
[2017-02-27] MEDS: Polyethylene Glycol 3350 Powder 17 GM Packet JTUBE SCH (09:00)
[2017-02-27] MEDS: SORBITOL 70% JTUBE SCH (09:00)
[2017-02-27] MEDS ORDERED: Polyethylene Glycol 3350 Powder 17 GM Packet JTUBE SCH (09:00)
--- NOTE | 2017-02-27 09:12 | CR ---
Chest 1V Frontal HISTORY: Shortness of breath. COMPARISON: 01/22/2017. FINDINGS: With inspiration. Cardiac size stable. Focal infiltrates or effusions. No acute congestive change.
--- NOTE | 2017-02-27 09:52 | CR ---
Abdomen 1V Flat HISTORY: Constipation. COMPARISON: [facility] 11/27/2007 FINDINGS: G-tube present. Extensive stool throughout the entire colon. Prominent scoliosis. No defin ite free air seen. Dysplasia right hip unchanged.
[2017-02-27] MEDS ORDERED: Sodium Phosphate,Monobasic/Sodium Phosphate,Dibasic Enema 133 ML Bottle RECTAL PRN (15:34)
--- NOTE | 2017-02-27 15:40 | PCM.PN ---
- General Info Date of Service: 02/27/17 - Review of Systems Systems Review Comment:: Patient is noncommunicative and unable to provide significant information concerning review of systems. He is been stable from a respiratory standpoint since admission but is not yet had significant stool output. On evaluation in the emergency department with abdominal x-ray found to have significant retained stool. He otherwise has been hemodynamically stable and afebrile. - Patient Data Vitals - most recent: Last Vital Signs Temp 98.7 F 02/27/17 14:41 Pulse 99 02/27/17 14:41 Resp 16 02/27/17 14:41 BP 164/78 H 02/27/17 11:10 Pulse Ox 92 L 02/27/17 14:41 Weight - most recent: 114 lb 15.996 oz I&O - last 24 hours: Intake & Output 02/27/17 02/27/17 02/27/17 06:59 14:59 22:59 Intake Total 1721 660 360 Balance 1721 660 360 Lab Results last 24 hrs: Laboratory Results - last 24 hr 02/27/17 02/27/17 02/27/17 Range/Units 04:30 08:08 08:08 WBC 12.5 H (4.5-11.0) K/uL RBC 4.65 (4.30-5.90) M/uL Hgb 14.7 (12.0-15.0) g/dL Hct 44.1 (40.0-54.0) % MCV 95 (80-98) fL MCH 32 H (27-31) pg MCHC 33 (32-36) % Plt Count 356 (150-400) K/uL Neut % (Auto) 83 H (36-66) % Lymph % (Auto) 8 L (24-44) % [place] % (Auto) 8 H (2-6) % Eos % (Auto) 0 L (2-4) % Baso % (Auto) 0 (0-1) % Sodium 140 (140-148) mmol/L Potassium 3.9 (3.6-5.2) mmol/L Chloride 101 (100-108) mmol/L Carbon Dioxide 30 (21-32) mmol/L Anion Gap 9.1 (5.0-14.0) mmol/L BUN 16 (7-18) mg/dL Creatinine 0.5 L (0.8-1.3) mg/dL Est Cr Clr Drug Dosing 110.12 mL/min Estimated GFR (MDRD) > 60 (>60) Glucose 148 H (74-106) mg/dL Calcium 8.8 (8.5-10.1) mg/dL Urine Color Yellow Urine Appearance Cloudy Urine pH 8.0 (4.5-8.0) Ur Specific [place] 1.015 (1.008-1.030) Urine Protein Negative (NEGATIVE) mg/dL Urine Glucose (UA) Normal (NEGATIVE) mg/dL Urine Ketones Negative (NEGATIVE) mg/dL Urine Occult Blood Negative (NEGATIVE) Urine Nitrite Negative (NEGAITVE) Urine Bilirubin Negative (NEGATIVE) Urine Urobilinogen Normal (NORMAL) mg/dL Ur Leukocyte Esterase Negative (NEGATIVE) Urine RBC 0-5 (0-5) Urine WBC 0-5 (0-5) Ur Epithelial Cells Few Amorphous Sediment Many Urine Bacteria Many Urine Mucus Not seen Med Orders - Current: Current Medications Acetaminophen (Tylenol Solution) 640 mg JTUBE Q4H PRN PRN Reason: Pain/Fever Hydrocodone Bitart/Acetaminophen (Acetaminophen/Hydrocodone 108-2.5 Mg/5 Ml) 10 ml JTUBE Q4H PRN PRN Reason: Pain Albuterol (Proventil Neb Soln) 2.5 mg NEB Q4H PRN PRN Reason: wheeze Last Admin: 02/27/17 07:41 Dose: 2.5 mg Bisacodyl (Dulcolax) 10 mg RECTAL ONETIME ONE Stop: 02/27/17 15:35 Diazepam (Valium Intensol Oral 5mg/Ml U/D) 5 mg JTUBE BID [facility] Last Admin: 02/27/17 08:51 Dose: 5 mg Diazepam (Valium Intensol Oral 5mg/Ml U/D) 2 mg JTUBE DAILY@1200 [facility] Last Admin: 02/27/17 11:57 Dose: 2 mg Lorazepam (Ativan) 1 mg IV Q6H PRN PRN Reason: Nausea/Vomiting Magnesium Hydroxide (Milk Of Magnesia) 30 ml JTUBE Q72H [facility] Pantoprazole Sodium (Protonix Iv) 40 mg IVPUSH DAILY [facility] Last Admin: 02/27/17 09:00 Dose: 40 mg Polyethylene Glycol (Miralax) 17 gm JTUBE DAILY [facility] Last Admin: 02/27/17 09:00 Dose: 17 gm Polyethylene Glycol (Miralax) 119 gm GTUBE ONETIME ONE Stop: 02/27/17 15:34 Sodium Biphosphate/Sodium Phosphate (Fleet Enema) 133 ml RECTAL ONETIME PRN PRN Reason: Constipation Sorbitol (Sorbitol 70%) 30 ml JTUBE DAILY [facility] Last Admin: 02/27/17 09:00 Dose: 30 ml Discontinued Medications Albuterol (Proventil Neb Soln) 2.5 mg NEB ONETIME ONE Stop: 02/26/17 17:58 Last Admin: 02/26/17 18:12 Dose: 2.5 mg Bisacodyl (Dulcolax) 10 mg RECTAL ONETIME ONE Stop: 02/26/17 17:10 Last Admin: 02/26/17 17:40 Dose: 10 mg Sodium Chloride (Normal Saline) 1,000 mls @ 400 mls/hr IV ASDIRECTED [facility] Last Admin: 02/26/17 17:39 Dose: 400 mls/hr Lactated Ringer's (Ringers, Lactated) 1,000 mls @ 125 mls/hr IV ASDIRECTED [facility] Last Infusion: 02/27/17 06:09 Dose: 75 mls/hr Lactated Ringer's (Ringers, Lactated) 1,000 mls @ 75 mls/hr IV ASDIRECTED [facility] Last Admin: 02/27/17 15:08 Dose: 75 mls/hr Magnesium Citrate (Citrate Of Magnesia) 148 ml JTUBE ONETIME ONE Stop: 02/26/17 23:01 Last Admin: 02/26/17 22:13 Dose: 148 ml Magnesium Citrate (Citrate Of Magnesia) 148 ml JTUBE ONETIME ONE Stop: 02/26/17 21:01 Last Admin: 02/27/17 03:11 Dose: 148 ml Polyethylene Glycol (Miralax) 17 gm JTUBE ONETIME ONE Stop: 02/26/17 20:34 Last Admin: 02/27/17 05:09 Dose: Not Given Sodium Biphosphate/Sodium Phosphate (Fleet Enema) 133 ml RECTAL ONETIME ONE Stop: 02/26/17 20:34 Last Admin: 02/27/17 05:46 Dose: 1 box - Exam General: alert, no acute distress Lungs: Normal respiratory effort, Wheezing. No: Crackles, Rales, Rhonchi, Rub, Stridor Cardiovascular: Regular Rate, Regular Rhythm, No Murmurs Abdomen: bowel sounds present, soft, no tenderness, no distension Extremities: no edema Skin: warm, dry, intact - Problem List Review Problem List Initiated/Reviewed/Updated: Yes - My Orders Last 24 Hours: My Active Orders 02/26/17 20:13 Admission Status [Patient Status] [ADT] Routine 02/27/17 15:21 Convert IV to Saline Lock [OM.PC] Routine 02/27/17 15:33 Polyethylene Glycol 3350 [MiraLAX] 119 gm GTUBE ONETIME ONE 02/27/17 15:34 Bisacodyl [Dulcolax] 10 mg RECTAL ONETIME ONE Na Phos,M-B/Na Phos,DI-B [Fleet Enema] 133 ml RECTAL ONETIME PRN - Plan Plan:: ASSESSMENT AND PLAN: Constipation with fecal impaction-may be even partial cause of some of his respiratory difficulty, no significant results thus far with current management -Saline lock IV -Miralax 119 g by mouth now -Dulcolax suppository now -Fleet enema if no results from suppository -tube feedings, change per recommendations from dietary consult Spastic paralysis, CP, 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 -PPI; IV Protonix 40mg daily. -consult OT for discharge planning. -consult PT for strengthening, prevent further contracture. -consult to social service technician for discharge planning. CODE STATUS: DNR/DNI Admission status: Admit to [address] [place] [address] Admission justification. This patient will be admitted for inpatient services and is medically appropriate meeting medical necessity for inpatient admission as outlined in my documentation. I reasonably expect the patient will require inpatient services that span. Time over 2 midnights. I reasonably expect this patient to be discharged or transferred within 96 hours after admission to the critical access hospital. Disposition; [facility] Hospitalist: Dr. Zhang
[2017-02-27] MEDS ORDERED: Bisacodyl 10 MG Supp RECTAL ONE (16:00)
[2017-02-27] MEDS ORDERED: Polyethylene Glycol 3350 Powder 119 GM Bottle GTUBE ONE (16:00)
[2017-02-27] MEDS ORDERED: Sodium Phosphate,Monobasic/Sodium Phosphate,Dibasic Enema 133 ML Bottle RECTAL ONE (22:40)
--- NOTE | 2017-02-28 | PCM.SN ---
- Free Text/Narrative Note: time; 22:45 s/o; concerns of abdomen distension, reports only smears of stool. a; constipation p; manual removal of hard dark green stool. repeat enema. continue with present plan of care.
[2017-02-28] MEDS ORDERED: Magnesium Hydroxide 400 MG/5 ML Susp 30 ML Cup JTUBE SCH (09:00)
[2017-02-28] MEDS: Pantoprazole 40 MG Vial IVPUSH SCH (09:06)
[2017-02-28] MEDS: Polyethylene Glycol 3350 Powder 17 GM Packet JTUBE SCH (09:08)
[2017-02-28] MEDS: SORBITOL 70% JTUBE SCH (09:09)
[2017-02-28] MEDS: Diazepam ORAL 5 MG/ML U/D Container JTUBE SCH ×3 (09:12→21:13)
--- NOTE | 2017-02-28 14:39 | PCM.PN ---
- General Info Date of Service: 02/28/17 Functional Status: Reports: pain controlled - Review of Systems Systems Review Comment:: Aashish has been stable from a respiratory standpoint but is not yet had significant bowel movement despite large dose of Miralax yesterday. There is been no evidence of respiratory compromise, vital signs have been stable and he has remained afebrile. - Patient Data Vitals - most recent: Last Vital Signs Temp 98.2 F 02/28/17 14:06 Pulse 95 02/28/17 10:31 Resp 20 02/28/17 14:06 BP 190/98 H 02/28/17 14:06 Pulse Ox 89 L 02/28/17 14:06 Weight - most recent: 114 lb 15.996 oz I&O - last 24 hours: Intake & Output 02/27/17 02/28/17 02/28/17 22:59 06:59 14:59 Intake Total 1937 0 Balance 1937 0 Med Orders - Current: Current Medications Acetaminophen (Tylenol Solution) 640 mg JTUBE Q4H PRN PRN Reason: Pain/Fever Hydrocodone Bitart/Acetaminophen (Acetaminophen/Hydrocodone 108-2.5 Mg/5 Ml) 10 ml JTUBE Q4H PRN PRN Reason: Pain Albuterol (Proventil Neb Soln) 2.5 mg NEB Q4H PRN PRN Reason: wheeze Last Admin: 02/27/17 20:46 Dose: 2.5 mg Diazepam (Valium Intensol Oral 5mg/Ml U/D) 5 mg JTUBE BID [facility] Last Admin: 02/28/17 09:12 Dose: 5 mg Diazepam (Valium Intensol Oral 5mg/Ml U/D) 2 mg JTUBE DAILY@1200 [facility] Last Admin: 02/28/17 12:19 Dose: 2 mg Lorazepam (Ativan) 1 mg IV Q6H PRN PRN Reason: Nausea/Vomiting Magnesium Hydroxide (Milk Of Magnesia) 30 ml JTUBE Q72H [facility] Last Admin: 02/28/17 09:08 Dose: 30 ml Pantoprazole Sodium (Protonix Iv) 40 mg IVPUSH DAILY [facility] Last Admin: 02/28/17 09:06 Dose: 40 mg Polyethylene Glycol (Miralax) 17 gm JTUBE DAILY [facility] Last Admin: 02/28/17 09:08 Dose: 17 gm Sorbitol (Sorbitol 70%) 30 ml JTUBE DAILY [facility] Last Admin: 02/28/17 09:09 Dose: 30 ml Discontinued Medications Albuterol (Proventil Neb Soln) 2.5 mg NEB ONETIME ONE Stop: 02/26/17 17:58 Last Admin: 02/26/17 18:12 Dose: 2.5 mg Bisacodyl (Dulcolax) 10 mg RECTAL ONETIME ONE Stop: 02/26/17 17:10 Last Admin: 02/26/17 17:40 Dose: 10 mg Bisacodyl (Dulcolax) 10 mg RECTAL ONETIME ONE Stop: 02/27/17 16:01 Last Admin: 02/27/17 16:06 Dose: 10 mg Sodium Chloride (Normal Saline) 1,000 mls @ 400 mls/hr IV ASDIRECTED [facility] Last Admin: 02/26/17 17:39 Dose: 400 mls/hr Lactated Ringer's (Ringers, Lactated) 1,000 mls @ 125 mls/hr IV ASDIRECTED [facility] Last Infusion: 02/27/17 06:09 Dose: 75 mls/hr Lactated Ringer's (Ringers, Lactated) 1,000 mls @ 75 mls/hr IV ASDIRECTED [facility] Last Admin: 02/27/17 15:08 Dose: 75 mls/hr Magnesium Citrate (Citrate Of Magnesia) 148 ml JTUBE ONETIME ONE Stop: 02/26/17 23:01 Last Admin: 02/26/17 22:13 Dose: 148 ml Magnesium Citrate (Citrate Of Magnesia) 148 ml JTUBE ONETIME ONE Stop: 02/26/17 21:01 Last Admin: 02/27/17 03:11 Dose: 148 ml Polyethylene Glycol (Miralax) 17 gm JTUBE ONETIME ONE Stop: 02/26/17 20:34 Last Admin: 02/27/17 05:09 Dose: Not Given Polyethylene Glycol (Miralax) 119 gm GTUBE ONETIME ONE Stop: 02/27/17 16:01 Last Admin: 02/27/17 16:07 Dose: 119 gm Sodium Biphosphate/Sodium Phosphate (Fleet Enema) 133 ml RECTAL ONETIME ONE Stop: 02/26/17 20:34 Last Admin: 02/27/17 05:46 Dose: 1 box Sodium Biphosphate/Sodium Phosphate (Fleet Enema) 133 ml RECTAL ONETIME PRN PRN Reason: Constipation Last Admin: 02/27/17 21:08 Dose: 133 ml Sodium Biphosphate/Sodium Phosphate (Fleet Enema) 133 ml RECTAL ONETIME ONE Stop: 02/27/17 22:41 Last Admin: 02/27/17 22:40 Dose: 133 ml - Exam General: no acute distress Lungs: Clear to auscultation, Normal respiratory effort Cardiovascular: Regular Rate, Regular Rhythm, No Murmurs Abdomen: bowel sounds present, soft, distension. No: rigidity, rebound, guarding, tenderness - Problem List Review Problem List Initiated/Reviewed/Updated: Yes - My Orders Last 24 Hours: My Active Orders 02/27/17 15:21 Convert IV to Saline Lock [OM.PC] Routine 02/27/17 15:39 Enteral Feedings [RC] Click to Edit 02/27/17 16:29 Communication Order [RC] Click to Edit 02/28/17 11:31 Enema [RC] ASDIRECTED - Plan Plan:: ASSESSMENT AND PLAN: CONSTIPATION WITH FECAL IMPACTION-may be even partial cause of some of his respiratory difficulty, no significant results thus far with current management -Saline lock IV -Tapwater enemas today until clear -tube feedings, change per recommendations from dietary consult Spastic paralysis, CP, 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 -PPI; IV Protonix 40mg daily. -consult OT for discharge planning. -consult PT for strengthening, prevent further contracture. -consult to social worker palliative care for discharge planning. CODE STATUS: DNR/DNI Admission status: Admit to [address] [place] [address] justification. This patient will be admitted for inpatient services and is medically appropriate meeting medical necessity for inpatient admission as outlined in my documentation. I reasonably expect the patient will require inpatient services that [facility]. [facility] I reasonably expect this patient to be discharged or transferred within 96 hours after admission to the [facility]. Disposition; [facility] Hospitalist: Dr. Zhang
[2017-02-28] MEDS ORDERED: Mineral Oil 10 ML Bottle ONE (15:00)
[2017-03-01] MEDS: Polyethylene Glycol 3350 Powder 17 GM Packet JTUBE SCH (09:12)
[2017-03-01] MEDS: SORBITOL 70% JTUBE SCH (09:12)
[2017-03-01] MEDS: Diazepam ORAL 5 MG/ML U/D Container JTUBE SCH ×2 (09:14→11:12)
[2017-03-01] MEDS: Pantoprazole 40 MG Vial IVPUSH SCH (09:16)
--- NOTE | 2017-03-01 10:27 | PCM.DCSUM1 ---
Discharge Summary - Hospital Course Brief History: This patient is a 66-year-old gentleman who was admitted through the emergency department with severe constipation and respiratory compromise. - Discharge Data Discharge Date: 03/01/17 Discharge Disposition: DC/Tfer to [facility] Condition: Fair - Discharge Diagnosis/Problem(s) (1) Constipation by delayed colonic transit SNOMED Code(s): 79722720 ICD Code: K59.01 - SLOW TRANSIT CONSTIPATION Status: Acute Current Visit : Yes (2) Global developmental delay, osteopenia, and ectodermal defect syndrome SNOMED Code(s): 353876705 ICD Code: Q87.89 - OT CONGENITAL MALFORMATION SYNDROMES, NEC; F88 - OTHER DISORDERS OF PSYCHOLOGICAL DEVELOPMENT; M85.80 - [facility] DISRD OF BONE DENSITY AND STRUCTURE, UNSPECIFIED SITE Status: Acute Priority: High Current Visit: Yes (3) Reactive airway disease SNOMED Code(s): 281461177625 ICD Code: J45.909 - UNSPECIFIED ASTHMA, UNCOMPLICATED Status: Chronic Current Visit: No Qualifiers: Asthma severity: mild intermittent Asthma complication type: with acute exacerbation Qualified Code(s): J45.21 - Mild intermittent asthma with (acute ) exacerbation - Patient Summary/Data Hospital Course: Aashish is a 66-year-old gentleman with congenital physical and cognitive impairment who resides in a local longterm. He had recent difficulty over the past several weeks with respiratory compromise, at one point diagnosed with pneumonia and treated with antibiotics. Continued to have some wheezing and rhonchorous respirations. On the day of admission was found to have hypoxia and was referred to the emergency department for further evaluation. White blood cell count was within normal range and chest x-ray showed no obvious infiltrates. X-ray of the abdomen did document marked constipation with stool throughout the colon. He was admitted to the hospital and treated with supplemental oxygen as well as nebulizer therapy. During his hospital course respiratory status stabilized significantly with no evidence of underlying infection. He was treated with oral preparations as well as suppositories and enemas for his constipation, but still did not have significant stool output. On the day prior to discharge she did receive several tapwater enemas but did result in large output of stool. On the day of discharge she appears to be stable with good vital signs and is afebrile. During his hospital stay was seen and evaluated by the dietitian for recommendations concerning tube feedings. They recommended change in formula to Jevity which should provide more fiber as well as increase in free water intake through the tube. Hopefully this will result in more regular bowel movements. He also will have his dose of Merrem likes increased to 17 g twice daily, this may need to be adjusted going forward depending on his stool output. Activity will be as tolerated and he will resume his usual diet. Follow-up appointment should be scheduled with his primary care provider Dr. Yip within one week. - Patient Instructions Diet, Other: Tube feedings, please see written orders and closed with discharge orders Activity: As Tolerated Other/Special Instructions: Schedule follow-up appointment with Dr. Yip within 1 week. - Discharge Plan Prescriptions/Med Rec: Polyethylene Glycol 3350 [MiraLAX] 17 gm PO BID #60 packet Home Medications: Home Meds Bisacodyl 10 mg RC Q72H 02/20/14 [History] Diazepam 2 mg PO WITHLUNCH 02/20/14 [History] Diazepam 5 mg PO BID 02/20/14 [History] Magnesium Hydroxide [Milk of Magnesia] 30 ml PO Q72H 02/20/14 [History] Multivitamin [Multi-Vitamin Daily] 1 each PO DAILY 02/20/14 [History] Sorbitol Solution [Sorbitol] 30 ml PO DAILY 02/20/14 [History] Polyethylene Glycol 3350 [MiraLAX] 17 gm PO BID #60 packet 03/01/17 [Rx] Referrals: Link Yip MD [Primary Care Provider] - - Patient Data Vitals - Most Recent: Last Vital Signs Temp 97.1 F 03/01/17 07:27 Pulse 56 L 03/01/17 07:27 Resp 16 03/01/17 07:27 BP 112/66 03/01/17 07:34 Pulse Ox 93 L 03/01/17 07:27 Weight - Most Recent: 114 lb 15.996 oz I&O - Last 24 hours: Intake & Output 02/28/17 03/01/17 03/01/17 22:59 06:59 14:59 Intake Total 1497 Balance 1497 Med Orders - Current: Current Medications Acetaminophen (Tylenol Solution) 640 mg JTUBE Q4H PRN PRN Reason: Pain/Fever Hydrocodone Bitart/Acetaminophen (Acetaminophen/Hydrocodone 108-2.5 Mg/5 Ml) 10 ml JTUBE Q4H PRN PRN Reason: Pain Albuterol (Proventil Neb Soln) 2.5 mg NEB Q4H PRN PRN Reason: wheeze Last Admin: 02/27/17 20:46 Dose: 2.5 mg Diazepam (Valium Intensol Oral 5mg/Ml U/D) 5 mg JTUBE BID [facility] Last Admin: 03/01/17 09:14 Dose: 5 mg Diazepam (Valium Intensol Oral 5mg/Ml U/D) 2 mg JTUBE DAILY@1200 [facility] Last Admin: 02/28/17 12:19 Dose: 2 mg Lorazepam (Ativan) 1 mg IV Q6H PRN PRN Reason: Nausea/Vomiting Magnesium Hydroxide (Milk Of Magnesia) 30 ml JTUBE Q72H [facility] Last Admin: 02/28/17 09:08 Dose: 30 ml Pantoprazole Sodium (Protonix Iv) 40 mg IVPUSH DAILY [facility] Last Admin: 03/01/17 09:16 Dose: 40 mg Polyethylene Glycol (Miralax) 17 gm JTUBE DAILY [facility] Last Admin: 03/01/17 09:12 Dose: 17 gm Sorbitol (Sorbitol 70%) 30 ml JTUBE DAILY [facility] Last Admin: 03/01/17 09:12 Dose: 30 ml Discontinued Medications Albuterol (Proventil Neb Soln) 2.5 mg NEB ONETIME ONE Stop: 02/26/17 17:58 Last Admin: 02/26/17 18:12 Dose: 2.5 mg Bisacodyl (Dulcolax) 10 mg RECTAL ONETIME ONE Stop: 02/26/17 17:10 Last Admin: 02/26/17 17:40 Dose: 10 mg Bisacodyl (Dulcolax) 10 mg RECTAL ONETIME ONE Stop: 02/27/17 16:01 Last Admin: 02/27/17 16:06 Dose: 10 mg Sodium Chloride (Normal Saline) 1,000 mls @ 400 mls/hr IV ASDIRECTED [facility] Last Admin: 02/26/17 17:39 Dose: 400 mls/hr Lactated Ringer's (Ringers, Lactated) 1,000 mls @ 125 mls/hr IV ASDIRECTED [facility] Last Infusion: 02/27/17 06:09 Dose: 75 mls/hr Lactated Ringer's (Ringers, Lactated) 1,000 mls @ 75 mls/hr IV ASDIRECTED [facility] Last Admin: 02/27/17 15:08 Dose: 75 mls/hr Magnesium Citrate (Citrate Of Magnesia) 148 ml JTUBE ONETIME ONE Stop: 02/26/17 23:01 Last Admin: 02/26/17 22:13 Dose: 148 ml Magnesium Citrate (Citrate Of Magnesia) 148 ml JTUBE ONETIME ONE Stop: 02/26/17 21:01 Last Admin: 02/27/17 03:11 Dose: 148 ml Mineral Oil (Muri-Lube) 15 ml .XX ONETIME ONE Stop: 02/28/17 15:01 Last Admin: 02/28/17 14:45 Dose: 15 ml Polyethylene Glycol (Miralax) 17 gm JTUBE ONETIME ONE Stop: 02/26/17 20:34 Last Admin: 02/27/17 05:09 Dose: Not Given Polyethylene Glycol (Miralax) 119 gm GTUBE ONETIME ONE Stop: 02/27/17 16:01 Last Admin: 02/27/17 16:07 Dose: 119 gm Sodium Biphosphate/Sodium Phosphate (Fleet Enema) 133 ml RECTAL ONETIME ONE Stop: 02/26/17 20:34 Last Admin: 02/27/17 05:46 Dose: 1 box Sodium Biphosphate/Sodium Phosphate (Fleet Enema) 133 ml RECTAL ONETIME PRN PRN Reason: Constipation Last Admin: 02/27/17 21:08 Dose: 133 ml Sodium Biphosphate/Sodium Phosphate (Fleet Enema) 133 ml RECTAL ONETIME ONE Stop: 02/27/17 22:41 Last Admin: 02/27/17 22:40 Dose: 133 ml *Q Meaningful Use (DIS) - VTE *Q VTE Criteria *Q: - Stroke *Q Stroke Criteria *Q: - AMI *Q AMI Criteria *Q:
[2017-03-01 10:53] VITALS: BP 122/82
== END 2017-03-01 12:04 | DRG 392 ==
LOC: JP.ED 15:21 → JP.MS 19:29 → OBSVTOIN 20:13
PROVIDERS: ADMIT Hospitalist; ATTEND Hospitalist
DX: K59.01 Slow transit constipation (principal); F72 Severe intellectual disabilities; J45.21 Mild intermittent asthma with (acute) exacerbation; G83.9 Paralytic syndrome, unspecified; Q87.89 Other specified congenital malformation syndromes, not elsewhere classified; F88 Other disorders of psychological development; Z66 Do not resuscitate; Q82.4 Ectodermal dysplasia (anhidrotic); M85.80 Other specified disorders of bone density and structure, unspecified site; Z93.1 Gastrostomy status; Z88.1 Allergy status to other antibiotic agents; Z88.8 Allergy status to other drugs, medicaments and biological substances; Z91.048 Other nonmedicinal substance allergy status
CPT/HCPCS: 36415; 36600; 71010 ×2; 74000 ×2; 80053; 82803; 85025; 86140; 96360; 96361; 99285 ×2; A9270; J7040; 80048; 81001; 94640-76; 94762; 97162-GP; 97166-GO; C9113; J7120